=== PATIENT | female | born 1955 | race Caucasian/White ===

== ENCOUNTER 2016-06-09 08:15 | Emergency (ER) | payer MEDICAID ==
[~2016-06-09] VITALS: Ht 157.5 cm; Wt 86.2 kg
[~2016-06-09 08:15] MED LIST: AMBIEN 10MG TAB10 MG PO; EFFEXOR XR 75MG75 MG PO; MULTIVITAMIN1 TA2 PO; PRILOSEC40 MG PO
--- NOTE | 2016-06-09 08:36 | Emergency Room Report ---
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 N Clinical Suspician of Infection? N Mental Status: 1 - Regular (Normal Baseline) Sepsis Risk:Low Sepsis Risk Have you (or family members/close friends) recently traveled outside the [place]? N If Yes, where/when: Have you had exposure to infectious disease within the past month? N TB? Other? 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 Yesterday morning awakened with pain in he left ankle and foot and today it is worse. No history of injury No history of Gout but concerned it may be gout Cardiac Chest Pain Chest pain indicative of cardiac No ALLERGIES Coded Allergies: No Known Allergies (06/09/16) Home Medications Reported Medications Venlafaxine Hydrochloride (Effexor XR 75MG) 75 MG PO QHS Omeprazole (Prilosec 40mg Cap) 40 MG PO DAILY History Medical History General Angina: No [place]: No Hypertension? No Hyperlipidemia? No COPD? No Asthma? No CVA? No Seizures? No Diabetes? No GB Disease: Yes Arthritis? Yes MRSA? No TB? No Cancer? No Immunization Hx DT/Tetanus 1-4 YRS Surgical Hx Previous Surgery?Y GALL BLADDER C SECTION [employer]UAL [employer]IST[employer] Hx LMP menopause Social History Smoking Hx Smoker: Current Every Day Smoker Tobacco: Yes Type Cigarettes Packs/day < 1 Pack Are you/the child exposed to second-hand smoke: Yes Alcohol Alcohol: No Review of Systems All Other Systems Reviewed and Negative Constitutional see HPI Musculoskeletal see HPI Physical Exam Vital Signs Vital Signs Date Time Temp Pulse Resp B/P Pulse O2 O2 Flow FiO2 Ox Delivery Rate 06/10 935 20 06/10 919 98.1 91 22 144/105 96 06/09 821 97.9 81 20 154/83 96 General Appearance normal appearance, WD/WN, mild distress Respiratory Status No: respiratory distress. Cardiovascular normal exam, regular rate/rhythm Extremities swelling, swelling redness and pain in right ankle and foot Neurologic normal exam Medical Decision Making LABS/Meds/Orders Pt receiving controlled substance in ED? Yes Wilfredo was queried for this patient? Yes Reference #: [id number] Risks/benefits of using a controlled substance for treatment were not discussed w/pt Comment Pt has only had 1 narcotic prescription in past year that shows up on [facility] reprot Results/Orders Laboratory Tests 06/09/16 0905: Sodium 141, Potassium 3.4 L, Chloride 104, Carbon Dioxide 27, BUN 7, Creatinine 0.8, Estimated Creat Clear 103, Estimated GFR (MDRD) 73, Glucose 120 H, Uric Acid 3.6, Calcium 9.2, Total Bilirubin 0.9, AST 18, ALT 25, Alkaline Phosphatase 114, Total Protein 8.6 H, Albumin 3.7, Globulin 4.9 H, Albumin/Globulin Ratio 0.8 L, WBC 14.6 H, RBC 5.38, Hgb 15.8, Hct 46.0, MCV 85.5, RDW 13.3, Plt Count 290, MPV 6.5 L, Gran % 83.7 H, Gran # 12.2 H, Lymphocytes % 10.8, Monocytes % 4.2, Eosinophils % 1.0, Basophils % 0.3, Lymphocytes # 1.6, Monocytes # 0.6, Eosinophils # 0.2, Basophils # 0.0, PUBS MCHC 34.4, MCH 29.5 Current Medication Orders Sig/Herb Start time Last Medication Dose Route Stop Time Status Admin Ketorolac 0 .STK-MED ONE 06/10 935 DC Tromethamine .ROUTE Ketorolac 60 MG ONCE ONE 06/09 929 DC 06/09 Tromethamine IM 06/09 930 0936 Orders Procedure Date/time Status FOOT-RT-2 VIEWS 06/10 835 Active ANKLE-RT-2 VIEWS 06/10 835 Active URIC ACID 06/10 835 Complete C-REACTIVE PROTEIN 06/10 835 Complete CBC WITH AUTO DIFF 06/10 835 Complete CHEM 12 PROFILE 06/10 835 Complete XRAY/CT/US XRAY/CT/US XRAY ankle, foot XR interpretation by reviewed by me Xray Results normal/NAD, no fracture seen Departure Departure Time of Disposition 09 Disposition DC Home or Self Care(routine) Clinical Impression Primary Impression: Rheumatoid arthritis involving ankle Qualifiers: Rheumatoid factor presence: unspecified presence Laterality: right Qualified Code: M06.9 - Rheumatoid arthritis, unspecified Condition STABLE Referrals [facility] RICHARDS (Family): 2 Days-Call Office Patient Instructions DI for Rheumatoid Arthritis, Rheumatoid Arthritis ( Alternative Therapy) Additional Instructions Use medicine as directed and followup with PCP in 2 days to get referral to Gis Database Administrator Discharge Counseling Counseled pt/family regarding diagnosis, test results Prescriptions Current Visit Scripts HYDROCODONE/ACETAMINOPHEN (Hydrocodon-Acetaminoph 7.5-325) 1 TAB PO Q6HP PRN pain #15 TAB Prednisone (Prednisone 5MG) 5 MG PO DIRECTED #39 TAB 6 tab QD x 3D 4 tab QD x 3D 2 tab QD x 3D 1 tab QD x 3d ED Critical Care Critical Care No If Critical Care minutes are documented, the time involved in the performance of seperately reportable procedures was not counted toward critical care time documented. I directly delivered medical care to this critically ill and/or injured patient. Timely evaluation and treatment was necessary to address the significant organ system(s) dysfunction present in this patient. at 0945
[2016-06-09 09:14] LABS: HEMOGLOBIN 15.8 g/dL (12.2-16.2); LYMPH # 1.6 K/mm3 (0.7-4.5); LYMPH % 10.8 % (10-50.0)
[2016-06-09] MEDS ORDERED: HYDROCODONE-APA1 TA2 PO (09:45)
[2016-06-09] MEDS ORDERED: PREDNISONE 5MG.5 MG PO (09:45)
[2016-06-09 09:54] VITALS: BP 155/99
--- NOTE | 2016-06-09 17:26 | RADIOLOGY REPORT PS360 ---
ANKLE-RT-2 VIEWS INDICATION: Pain lateral aspect ankle. Started yesterday morning no known trauma. TECHNIQUE: 3 views right ankle COMPARISON: None available FINDINGS: There is osseous fragment off the tip of the lateral malleolus. Slightly corticated. Radiographically favor this more likely an old feature from old trauma or accessory ossification. In addition there is no history of trauma. Still the patient does have soft tissue swelling which is more evident overlying the lateral malleolus. However there is also diffuse soft tissue swelling at the foot more distally. Ankle mortise is intact. The medial and posterior malleolus intact. Dome of talus intact. Generous posterior process of talus. Small minimal plantar calcaneal spur. Also moderate spurring at insertion of Achilles tendon. IMPRESSION. osseous fragment off the tip of the lateral malleolus which I favor is corticated & more likely old radiographically. In addition the patient denies recent trauma a which would speak against acute fracture is well. Soft tissue swelling overlying the lateral malleolus and throughout the foot noted
--- NOTE | 2016-06-09 17:33 | RADIOLOGY REPORT PS360 ---
FOOT-RT-2 VIEWS INDICATION: Right foot pain. Pain started yesterday TECHNIQUE: 3 views right foot. COMPARISON: None available FINDINGS: No fracture nor dislocation apparent. . Joint space narrowing and developing degenerative changes most evident at the first MTP joint. Marginal osteophytes, hypertrophic changes are particular evident along the lateral and dorsal aspect of this first MTP joint. The Lateral view particularly notes most evident dorsal marginal osteophytes arising from the head of first metatarsal and base of proximal phalanx. . These features particularly evident dorsally as seen on the lateral film. However if there is should be focal pain at this joint may want to check uric acid. I see no placed out lesions to suggest gout but this is all is a consideration, if particularly great toe pain Borderline narrowing at DIP joints Diffuse soft tissue swelling at the foot Normal mineralization. No obvious radio opaque foreign . . IMPRESSION: No acute fracture Diffuse soft tissue swelling at the foot Degenerative changes most evident pronounced at the first MTP joint.
== END 2016-06-09 09:54 | disposition home or self-care (01) ==
LOC: ER 08:15
PROVIDERS: General Practice
DX: M06.9 Rheumatoid arthritis, unspecified (principal); Z72.0 Tobacco use